=== PATIENT | female | born 1985 | race Caucasian/White ===

== ENCOUNTER 2018-02-21 05:50 | Emergency (ER) | payer MEDICAID ==
[2018-02-21] MEDS ORDERED: Sodium Chloride 0.9% 1,000 ML IV ONE (06:18)
--- NOTE | 2018-02-21 06:18 | C.PDOC ---
History Of Present Illness pt presents with sudden onset of periumbilical pain. Some nausea, no vomiting. Sharp stabbing, non radiating pain. Time Seen by Provider: 02/21/18 06:18 Chief Complaint (Nursing): Abdominal Pain History Per: Patient History/Exam Limitations: no limitations Onset/Duration Of Symptoms: Hrs Current Symptoms Are (Timing): Still Present Context: Other Severity: Moderate Pain Scale Rating Of: 5 Location Of Pain/Discomfort: Epigastric Radiation Of Pain To:: None Quality Of Discomfort: Sharp, Cramping Associated Symptoms: denies: Fever, Chills, Nausea Exacerbating Factors: None Alleviating Factors: None Last Bowel Movement: Today Recent travel outside of the [place]: No Additional History Per: Patient Past Medical History Reviewed: Historical Data, Nursing Documentation, Vital Signs Vital Signs: Last Vital Signs Temp 98.5 F 02/21/18 05:54 Pulse 81 02/21/18 05:54 Resp 22 02/21/18 05:54 BP 134/85 02/21/18 05:54 Pulse Ox 100 02/21/18 06:18 Family History: States: No Known Family Hx - Social History Hx Alcohol Use: No Hx Substance Use: No - Immunization History Hx Tetanus Toxoid Vaccination: No Hx Influenza Vaccination: Yes Hx Pneumococcal Vaccination: No Review Of Systems Constitutional: Negative for: Fever, Chills Cardiovascular: Negative for: Chest Pain Respiratory: Negative for: Shortness of Breath Gastrointestinal: Positive for: Nausea, Abdominal Pain Genitourinary: Negative for: Dysuria Musculoskeletal: Negative for: Back Pain Skin: Negative for: Rash Neurological: Negative for: Weakness Psych: Negative for: Anxiety Physical Exam - Physical Exam Appears: Non-toxic, In Acute Distress Skin: Warm, Dry Oral Mucosa: Moist Lips: Normal Appearing Neck: Supple Chest: Symmetrical Cardiovascular: Rhythm Regular Respiratory: No Rales, No Rhonchi, No Wheezing Gastrointestinal/Abdominal: Soft, Tenderness, No Distention, No Guarding, No Rebound Back: Normal Inspection Extremity: Normal ROM Extremity: Bilateral: Atraumatic Neurological/Psych: Oriented x3 Gait: Steady ED Course And Treatment O2 Sat by Pulse Oximetry: 100 Pulse Ox Interpretation: Normal Disposition Counseled Patient/Family Regarding: Studies Performed, Diagnosis - Disposition Disposition Time: 06:18 Condition: FAIR Forms: [employer] (Omani) - Clinical Impression Clinical Impression: Abdominal pain Physician Patient Turnover Patient Signed Over To: Gabi Santana Handoff Comments: pending labs and dispostion
[2018-02-21] MEDS ORDERED: Sodium Chloride 0.9% 1,000 ML ONE (06:21)
[2018-02-21 06:31] LABS: BASO # 0.1 K/uL (0.0-0.2); BASO % 1.1 % (0.0-2.0); EOS # 0.1 K/uL (0.0-0.7); EOS % 1.9 % (0.0-4.0); HEMOGLOBIN 13.8 g/dL (11.0-16.0); LYMPH # 2.3 K/uL (1.0-4.3); MEAN CORPUSCULAR HEMOGLOBIN 29.8 pg (27.0-31.0); MEAN CORPUSCULAR HGB CONC 34.2 g/dL (33.0-37.0); MEAN PLATELET VOLUME 8.1 fL (7.2-11.7); MONO # 0.5 K/uL (0.0-0.8); MONO % 9.4 % (0.0-10.0); NEUT % 40.6 % (50.0-75.0); NRBC % 0.1 % (0.0-2.0); RBC 4.62 Mil/uL (3.80-5.20); RED CELL DISTRIBUTION WIDTH 13.7 % (11.5-14.5); WHITE BLOOD COUNT 4.9 K/uL (4.8-10.8)
[2018-02-21 06:42] LABS: CALCIUM 9.5 mg/dl (8.6-10.4); GFR AFRICAN-AMERICAN > 60; GFR NON-AFRICAN AMERICAN > 60; LIPASE 147 U/L (23-300)
[2018-02-21 06:45] LABS: ALB/GLOB RATIO 1.3 (1.0-2.1); ALT/SGPT 19 U/L (9-52); AST/SGOT 31 U/L (14-36); BLOOD UREA NITROGEN 20 mg/dL (7-17)
[2018-02-21 06:49] LABS: HCG,QUALITATIVE URINE NEGATIVE (NEGATIVE)
[2018-02-21 07:19] LABS: SQUAMOUS EPITHIAL 14 /hpf (0-5); URINE AMORPHOUS SEDIMENT FEW /ul (<OCC); URINE BACTERIA RARE (<OCC); URINE BILIRUBIN NEGATIVE (NEGATIVE); URINE BLOOD NEGATIVE (NEGATIVE); URINE CLARITY Hazy (Clear); URINE COLOR Yellow (YELLOW); URINE GLUCOSE (UA) NORMAL (Normal); URINE LEUKOCYTE ESTERASE 2+ Leu/uL (Negative); URINE PROTEIN NEGATIVE (NEGATIVE); URINE UROBILINOGEN NORMAL mg/dL (0.2-1.0)
[2018-02-21] MEDS ORDERED: Iodixanol 320 MG/ML 100 ML BOTTLE IV ONE (08:13)
--- NOTE | 2018-02-21 09:08 | CT ---
PROCEDURE: CT Abdomen and Pelvis with contrast HISTORY: PERIUMBILICAL PAIN R/O APPENDICITIS COMPARISON: None. TECHNIQUE: Contrast dose: 100 mL Visipaque 320 Radiation dose: Total exam DLP = 510.9 mGy-cm. This CT exam was performed using one or more of the following dose reduction techniques: Automated exposure control, adjustment of the mA and/or kV according to patient size, and/or use of iterative reconstruction technique. FINDINGS: LOWER THORAX: Unremarkable. LIVER: Unremarkable. No gross lesion or ductal dilatation. GALLBLADDER AND BILE DUCTS: Distended gallbladder with radiopaque gallstones, gallbladder wall thickening and edema. PANCREAS: Unremarkable. No gross lesion or ductal dilatation. SPLEEN: Unremarkable. ADRENALS: Unremarkable. No mass. KIDNEYS AND URETERS: Unremarkable. No hydronephrosis. No solid mass. VASCULATURE: Unremarkable. No aortic aneurysm. BOWEL: Unremarkable. No obstruction. No gross mural thickening. APPENDIX: Normal appendix. PERITONEUM: Unremarkable. No free fluid. No free air. LYMPH NODES: Unremarkable. No enlarged lymph nodes. BLADDER: Unremarkable. REPRODUCTIVE: Intrauterine device in place. BONES: No acute fracture. OTHER FINDINGS: None. IMPRESSION: CT findings suspicious for acute cholecystitis. Correlate clinically and with right upper quadrant ultrasound, as needed. Findings conveyed to Dr. Santana by Dr. Gibbons at 9:03 a.m. on 02/21/2018.
[2018-02-21] MEDS ORDERED: Sodium Chloride 0.9% 500 ML IV ONE (09:35)
--- NOTE | 2018-02-21 11:22 | US ---
HISTORY: epigastric pain, possible cholcystitis on CT COMPARISON: CT scan of the abdomen pelvis performed earlier the same day. TECHNIQUE: Sonographic evaluation of the right upper quadrant of the abdomen. FINDINGS: LIVER: Measures 18.5 cm in length. Increased echogenicity of the liver parenchyma. No mass. No intrahepatic bile duct dilatation. GALLBLADDER: Cholelithiasis with gallbladder wall thickening/ edema. Sonographic Kat's sign was not elicited ; however, patient receiving pain medication in the emergency department. COMMON BILE DUCT: Measures 3 mm. No stones. No dilatation. PANCREAS: Unremarkable as visualized. No mass. No ductal dilatation. RIGHT KIDNEY: Measures 12.2 x 3.8 x 4.6 cm in length. Normal echogenicity. No calculus, mass, or hydronephrosis. AORTA: No aneurysmal dilatation. IVC: Unremarkable. OTHER FINDINGS: None . IMPRESSION: Cholelithiasis with gallbladder wall thickening/edema and pericholecystic fluid. Patient received pain medication in the emergency department limiting sensitivity for sonographic Kat sign, which was not elicited. Findings are highly suspicious for acute cholecystitis in the appropriate clinical setting. Hepatic steatosis.
--- NOTE | 2018-02-21 12:04 | CP.PCM.CON ---
History of Present Illness - History of Present Illness History of Present Illness: General Surgery Consult note for Dr. Alvarez This 32F with no PMH presents with Epigastric pain of sudden onset that began at 4am. She reports nausea no vomiting. She denies any fevers chills diarrhea ro bloody bm at that time. She also denies any bloating or gas pains. She reports this is the first time she felt anything like this before. At the time of my patient interaction her pain has resolved. After reviewing the patients labs and imaging findings with her I discussed surgical options. She reports that it is not a good time for her to have surgery since she has two children at home. She would like to followup outpatient so that she can havea same day surgery and retun home later that evening, OMH: None PSH: Breast abscess Social: Denies smoking, etoh and drugs Review of Systems - Review of Systems All systems: reviewed and no additional remarkable complaints except - Gastrointestinal Gastrointestinal: Abdominal Pain (resolved), Nausea. absent: Diarrhea, Hematochezia, Vomiting Past Patient History - Infectious Disease Hx of Infectious Diseases: None - Past Social History Smoking Status: Never Smoked - PSYCHIATRIC Hx Substance Use: No - SURGICAL HISTORY Hx Surgeries: No - ANESTHESIA Hx Anesthesia: No Meds Home Medications: Home Medication List Medication Instructions Recorded Confirmed Type Ciprofloxacin [Cipro] 1 tab PO BID #14 tab 02/21/18 Rx Naproxen 375 mg PO BID PRN #20 tablet 02/21/18 Rx metroNIDAZOLE [Flagyl] 500 mg PO TID #21 tab 02/21/18 Rx Allergies/Adverse Reactions: Allergies Allergy/AdvReac Type Severity Reaction Status Date / Time No Known Allergies Allergy Unverified 02/21/18 05:55 Physical Exam - Constitutional Appears: Non-toxic, No Acute Distress - Head Exam Head Exam: ATRAUMATIC, NORMOCEPHALIC - Eye Exam Eye Exam: EOMI - ENT Exam ENT Exam: Mucous Membranes Moist - Respiratory Exam Respiratory Exam: NORMAL BREATHING PATTERN - Cardiovascular Exam Cardiovascular Exam: +S1, +S2 - GI/Abdominal Exam GI & Abdominal Exam: Soft. absent: Diminished Bowel Sounds, Distended, Firm, Guarding, Hernia, Tenderness - Neurological Exam Neurological exam: Alert, Oriented x3 - Psychiatric Exam Psychiatric exam: Normal Affect, Normal Mood - Skin Skin Exam: Dry, Intact Results - Vital Signs Recent Vital Signs: Last Vital Signs Temp 98.5 F 02/21/18 05:54 Pulse 85 02/21/18 09:30 Resp 18 02/21/18 09:30 BP 96/63 L 02/21/18 09:30 Pulse Ox 99 02/21/18 09:30 - Labs Result Diagrams: 02/21/18 06:24 02/21/18 06:24 Labs: Laboratory Results - last 24 hr 02/21/18 02/21/18 02/21/18 06:24 06:24 06:42 WBC 4.9 RBC 4.62 Hgb 13.8 Hct 40.2 MCV 87.0 MCH 29.8 MCHC 34.2 RDW 13.7 Plt Count 247 MPV 8.1 Neut % (Auto) 40.6 L Lymph % (Auto) 47.0 H [place] % (Auto) 9.4 Eos % (Auto) 1.9 Baso % (Auto) 1.1 Neut # (Auto) 2.0 Lymph # (Auto) 2.3 [place] # (Auto) 0.5 Eos # (Auto) 0.1 Baso # (Auto) 0.1 Sodium 140 Potassium 4.2 Chloride 101 Carbon Dioxide 24 Anion Gap 18 BUN 20 H Creatinine 0.6 L Est GFR ( Amer) > 60 Est GFR (Non-Af Amer) > 60 Random Glucose 97 Calcium 9.5 Total Bilirubin 1.3 AST 31 ALT 19 Alkaline Phosphatase 87 Total Protein 8.7 H Albumin 5.0 Globulin 3.7 Albumin/Globulin Ratio 1.3 Lipase 147 Urine Color Yellow Urine Clarity Hazy Urine pH 7.0 Ur Specific [place] 1.020 Urine Protein Negative Urine Glucose (UA) Normal Urine Ketones 1+ H Urine Blood Negative Urine Nitrate Negative Urine Bilirubin Negative Urine Urobilinogen Normal Ur Leukocyte Esterase 2+ H Urine WBC (Auto) 27 H Urine RBC (Auto) 1 Ur Squamous Epith Cells 14 H Amorphous Sediment Few H Urine Bacteria Rare Urine HCG, Qual Negative - Imaging and Cardiology US - abdomen Status: Image reviewed by me, Report reviewed by me CT scan - abdomen Status: Image reviewed by me, Report reviewed by me Assessment & Plan - Assessment and Plan (Free Text) Assessment: 32F with acute cholecystitis without evidence of choledocholithiasis Pt refusing surgery at this time Recommend antibiotic treatment with eventual cholecystectomy Will discuss patient presentation and plan with Dr. Alvarez Further recs per Dr. Kim Claros PGY3
[2018-02-21 12:15] VITALS: BP 110/73; PULSE 74; RESP 20; TEMP 97.9; O2SAT 100
== END 2018-02-21 12:14 | disposition home or self-care (01) ==
LOC: SUPCPDRO 05:50 → C.ER 05:50
DX: K80.20 Calculus of gallbladder without cholecystitis without obstruction (principal)
CPT/HCPCS: 74177; 76705; 80053; 81001; 83690; 84703; 85025; 96361; 96374; 96375; 99285; J1885; J2270; J2405; J7030; J7040; Q9967

== ENCOUNTER 2018-02-22 18:53 | Inpatient (IN) | payer MEDICAID ==
[2018-02-22] MEDS ORDERED: Piperacillin/Tazobact 3.375 gm 100 ML IVPB STA (19:54)
--- NOTE | 2018-02-22 19:54 | C.PDOC ---
History Of Present Illness 32 y/o female presents to ED for complaints of abdominal pain. Patient was seen in ER earlier today and had a CT and US done which showed possible acute cholecystitis. Patient states she refused admission earlier because the pain resolved. Patient currently returns for similar pain symptoms and discomfort. Time Seen by Provider: 02/22/18 19:53 Chief Complaint (Nursing): Abdominal Pain History Per: Patient History/Exam Limitations: no limitations Onset/Duration Of Symptoms: Hrs Current Symptoms Are (Timing): Still Present Severity: Moderate Pain Scale Rating Of: 5 Location Of Pain/Discomfort: Diffuse, RUQ Radiation Of Pain To:: None Associated Symptoms: denies: Fever, Chills, Nausea, Vomiting, Diarrhea Exacerbating Factors: None Alleviating Factors: None Last Bowel Movement: Today Recent travel outside of the [place]: No Additional History Per: Patient Abnormal Vaginal Bleeding: No Past Medical History Reviewed: Historical Data, Nursing Documentation, Vital Signs Vital Signs: Last Vital Signs Temp 98 F 02/22/18 19:01 Pulse 73 02/22/18 19:01 Resp 16 02/22/18 19:01 BP 108/72 02/22/18 19:01 Pulse Ox 99 02/22/18 20:13 - Medical History PMH: No Chronic Diseases Surgical History: No Surg Hx Family History: States: No Known Family Hx - Social History Hx Alcohol Use: No Hx Substance Use: No - Immunization History Hx Tetanus Toxoid Vaccination: No Hx Influenza Vaccination: Yes Hx Pneumococcal Vaccination: No Review Of Systems Constitutional: Negative for: Fever, Chills Gastrointestinal: Positive for: Abdominal Pain. Negative for: Nausea, Vomiting , Diarrhea Skin: Negative for: Rash Neurological: Negative for: Weakness, Numbness Psych: Negative for: Anxiety Physical Exam - Physical Exam Appears: Non-toxic Skin: Warm, Dry Head: Normacephalic Eye(s): bilateral: Normal Inspection Oral Mucosa: Moist Neck: Supple Chest: Symmetrical Cardiovascular: Rhythm Regular Respiratory: No Rales, No Rhonchi, No Wheezing Gastrointestinal/Abdominal: Soft, Tenderness (RUQ), No Distention, No Guarding, No Rebound Back: Normal Inspection Extremity: Normal ROM Extremity: Bilateral: Atraumatic, Normal Color And Temperature, Normal ROM Neurological/Psych: Oriented x3, Normal Speech Gait: Steady ED Course And Treatment O2 Sat by Pulse Oximetry: 99 (RA) Pulse Ox Interpretation: Normal Progress Note: Adminsitered Zofran, Toradol, Zosyn, and IV fluids. Ordered blood work. Disposition Discussed With Dr.: Ayala Casas Comment: accepted the pt on her service and took over the care at 8:14 PM Doctor Will See Patient In The: Hospital Counseled Patient/Family Regarding: Studies Performed, Diagnosis - Disposition Disposition: HOSPITALIZED Disposition Time: 19:54 Condition: FAIR Forms: [facility] (Macedonian) - POA Present On Arrival: None - Clinical Impression Clinical Impression: Abdominal pain, Acute cholecystitis - Scribe Statement The provider has reviewed the documentation as recorded by the Scribe Nadia Wright All medical record entries made by the Scribe were at my direction and personally dictated by me. I have reviewed the chart and agree that the record accurately reflects my personal performance of the history, physical exam, medical decision making, and the department course for this patient. I have also personally directed, reviewed, and agree with the discharge instructions and disposition. Decision To Admit - Pt Status Changed To: Hospital Disposition Of: Inpatient - Admit Certification Admit to Inpatient:: After my assessment, the patient will require hospitalization for at least two midnights. This is because of the severity of symptoms shown, intensity of services needed, and/or the medical risk in this patient being treated as an outpatient. - InPatient: Physician Admission Certification:: After my assessment, the patient will require hospitalization for at least two midnights. This is because of the severity of symptoms shown, intensity of services needed, and/or the medical risk in this patient being treated as an outpatient. - . Bed Request Type: Regular Admitting Physician: Ayala Casas Patient Diagnosis: Abdominal pain, Acute cholecystitis
[2018-02-22] MEDS ORDERED: Sodium Chloride 0.9% 1,000 ML IV ONE (19:55)
[2018-02-22 20:16] LABS: BASO % 0.8 % (0.0-2.0); EOS # 0.1 K/uL (0.0-0.7); EOS % 1.6 % (0.0-4.0); HEMOGLOBIN 12.6 g/dL (11.0-16.0); LYMPH # 1.5 K/uL (1.0-4.3); LYMPH % 29.7 % (20.0-40.0); MEAN CORPUSCULAR HEMOGLOBIN 29.4 pg (27.0-31.0); MEAN CORPUSCULAR HGB CONC 33.8 g/dL (33.0-37.0); MONO # 0.4 K/uL (0.0-0.8); MONO % 7.6 % (0.0-10.0); NEUT % 60.3 % (50.0-75.0); RBC 4.3 Mil/uL (3.80-5.20)
[2018-02-22 20:26] LABS: PROTHROMBIN TIME 10.9 SECONDS (9.7-12.2)
[2018-02-22] MEDS ORDERED: Piperacillin/Tazobact 3.375 gm 100 ML IVPB ONE (20:32)
[2018-02-22 20:38] LABS: ALB/GLOB RATIO 1.3 (1.0-2.1); ALBUMIN 4.5 g/dL (3.5-5.0); ALT/SGPT 189 U/L (9-52); AST/SGOT 87 U/L (14-36); BLOOD UREA NITROGEN 12 mg/dL (7-17); CALCIUM 9.4 mg/dl (8.6-10.4); GFR AFRICAN-AMERICAN > 60; GFR NON-AFRICAN AMERICAN > 60; LIPASE 86 U/L (23-300)
--- NOTE | 2018-02-22 21:16 | CP.PCM.CON ---
History of Present Illness - History of Present Illness History of Present Illness: Surgery: Dr. Ruiz CC: Abd Pain HPI: 32F w. no significant PMH originally presented to ED yesterday with acute onset abdominal pain. Work up was consistent with acute cholecystitis. Pt's pain resolved in ED and she opted for discharge to manage gallbladder electively. She returns to ED today for return of symptoms. She has acute RUQ abdominal pain. The pain is constant w. no alleviating or aggravating factors. She denies F/C. No N/V/D. PMH: None PSH: Breast abscess I&D Meds: MAR reviewed NKDA Social Hx: No ETHO/tobacco/drugs Fhx: Non-contributory Review of Systems - Review of Systems All systems: reviewed and no additional remarkable complaints except Past Patient History - Infectious Disease Hx of Infectious Diseases: None - Past Social History Smoking Status: Never Smoked - PSYCHIATRIC Hx Substance Use: No - SURGICAL HISTORY Hx Surgeries: No - ANESTHESIA Hx Anesthesia: No Meds Allergies/Adverse Reactions: Allergies Allergy/AdvReac Type Severity Reaction Status Date / Time No Known Allergies Allergy Verified 02/22/18 19:03 Physical Exam - Constitutional Appears: Non-toxic, No Acute Distress - Head Exam Head Exam: ATRAUMATIC, NORMOCEPHALIC - Eye Exam Eye Exam: EOMI - ENT Exam ENT Exam: Mucous Membranes Moist - Neck Exam Neck exam: Positive for: Full Rom, Normal Inspection - Respiratory Exam Respiratory Exam: NORMAL BREATHING PATTERN. absent: Accessory Muscle Use, Respiratory Distress - Cardiovascular Exam Cardiovascular Exam: REGULAR RHYTHM - GI/Abdominal Exam GI & Abdominal Exam: Soft, Tenderness (RUQ). absent: Distended, Firm, Guarding , Rebound, Rigid - Extremities Exam Extremities exam: Negative for: calf tenderness, pedal edema - Neurological Exam Neurological exam: Alert, Oriented x3 - Skin Skin Exam: Dry, Warm Results - Vital Signs Recent Vital Signs: Last Vital Signs Temp 98 F 02/22/18 19:01 Pulse 73 02/22/18 19:01 Resp 16 02/22/18 19:01 BP 108/72 02/22/18 19:01 Pulse Ox 99 02/22/18 20:16 - Labs Result Diagrams: 02/22/18 20:13 02/22/18 20:13 Labs: Laboratory Results - last 24 hr 02/22/18 02/22/18 02/22/18 20:13 20:13 20:13 WBC 5.0 RBC 4.30 Hgb 12.6 Hct 37.4 MCV 87.0 MCH 29.4 MCHC 33.8 RDW 14.0 Plt Count 221 MPV 8.0 Neut % (Auto) 60.3 Lymph % (Auto) 29.7 [place] % (Auto) 7.6 Eos % (Auto) 1.6 Baso % (Auto) 0.8 Neut # (Auto) 3.0 Lymph # (Auto) 1.5 [place] # (Auto) 0.4 Eos # (Auto) 0.1 Baso # (Auto) 0.0 PT 10.9 INR 1.0 APTT 31 Sodium 140 Potassium 4.1 Chloride 103 Carbon Dioxide 27 Anion Gap 15 BUN 12 Creatinine 0.7 Est GFR ( Amer) > 60 Est GFR (Non-Af Amer) > 60 Random Glucose 95 Calcium 9.4 Total Bilirubin 0.4 AST 87 H D ALT 189 H D Alkaline Phosphatase 102 Total Protein 7.9 Albumin 4.5 Globulin 3.5 Albumin/Globulin Ratio 1.3 Lipase 86 - Imaging and Cardiology CT scan - abdomen Status: Image reviewed by me, Report reviewed by me US - abdomen Status: Image reviewed by me, Report reviewed by me Assessment & Plan - Assessment and Plan (Free Text) Assessment: 32F w. cholecystitis -OR tomorrow for lap nelson -NPO -IVF -Pain meds -abx -d/w attending Zemaitis PGY4
[2018-02-22] MEDS: Sodium Chloride 0.9% 1,000 ML IV SCH (22:36)
[2018-02-23] MEDS: Piperacill/Tazo 3.375gm in Dex 3.375 GM/50 ML BAG IVPB SCH ×4 (03:32→21:58)
[2018-02-23 08:37] LABS: HEMOGLOBIN 11.7 g/dL (11.0-16.0); MEAN CELL VOLUME 87.2 fL (81.0-99.0); MEAN CORPUSCULAR HEMOGLOBIN 30.1 pg (27.0-31.0); MEAN CORPUSCULAR HGB CONC 34.5 g/dL (33.0-37.0); MEAN PLATELET VOLUME 8.3 fL (7.2-11.7); RBC 3.89 Mil/uL (3.80-5.20); RED CELL DISTRIBUTION WIDTH 13.9 % (11.5-14.5)
[2018-02-23 08:55] LABS: ALB/GLOB RATIO 1.2 (1.0-2.1); ALBUMIN 3.5 g/dL (3.5-5.0); ALT/SGPT 136 U/L (9-52); AST/SGOT 52 U/L (14-36); BLOOD UREA NITROGEN 11 mg/dL (7-17); CALCIUM 8.6 mg/dl (8.6-10.4); GFR AFRICAN-AMERICAN > 60; GFR NON-AFRICAN AMERICAN > 60
[2018-02-23] MEDS: Sodium Chloride 0.9% 1,000 ML IV SCH ×3 (10:22→21:59)
--- NOTE | 2018-02-23 10:57 | CP.PCM.HP ---
History of Present Illness - History of Present Illness History of Present Illness: pt has pain ruq abd recurent got worse last 2 days came to er 2 times has hx of gall stones admited for surgery c/o of constipation 4days no bowel movements Present on Admission - Present on Admission Any Indicators Present on Admission: No Review of Systems - Review of Systems Systems not reviewed;Unavailable: Acuity of Condition - Constitutional Constitutional: Anorexia, Fatigue - EENT Eyes: As Per HPI Ears: As Per HPI Nose/Mouth/Throat: As Per HPI - Breasts Breasts: As Per HPI - Cardiovascular Cardiovascular: As Per HPI - Respiratory Respiratory: As Per HPI - Gastrointestinal Gastrointestinal: Abdominal Pain, Change in Bowel Habits, Constipation, Nausea - Genitourinary Genitourinary: As Per HPI - Reproductive: Female Reproductive:Female: As Per HPI - Menstruation Menstruation: As Per HPI - Musculoskeletal Musculoskeletal: As Per HPI - Integumentary Integumentary: As Per HPI - Neurological Neurological: As Per HPI - Psychiatric Psychiatric: As Per HPI - Endocrine Endocrine: As Per HPI - Hematologic/Lymphatic Hematologic: As Per HPI Past Patient History - Infectious Disease Hx of Infectious Diseases: None - Past Medical History & Family History Past Medical History?: No - Past Social History Smoking Status: Never Smoked - MUSCULOSKELETAL/RHEUMATOLOGICAL Hx Falls: No - PSYCHIATRIC Hx Substance Use: No - SURGICAL HISTORY Hx Surgeries: No - ANESTHESIA Hx Anesthesia: No Meds Allergies/Adverse Reactions: Allergies Allergy/AdvReac Type Severity Reaction Status Date / Time No Known Allergies Allergy Verified 02/22/18 19:03 Physical Exam - Constitutional Appears: Non-toxic, In Acute Distress - Head Exam Head Exam: ATRAUMATIC - Eye Exam Eye Exam: Normal appearance Pupil Exam: NORMAL ACCOMODATION - ENT Exam ENT Exam: Normal Exam - Neck Exam Neck exam: Positive for: Full Rom - Respiratory Exam Respiratory Exam: Clear to Auscultation Bilateral - Cardiovascular Exam Cardiovascular Exam: REGULAR RHYTHM - GI/Abdominal Exam GI & Abdominal Exam: Normal Bowel Sounds, Tenderness - Rectal Exam Rectal Exam: NORMAL INSPECTION - Extremities Exam Extremities exam: Positive for: normal inspection - Back Exam Back exam: NORMAL INSPECTION - Neurological Exam Neurological exam: Alert, Normal Gait, Oriented x3 - Psychiatric Exam Psychiatric exam: Normal Affect - Skin Skin Exam: Normal Color Results - Vital Signs Recent Vital Signs: Last Vital Signs Temp 97.9 F 07/06/18 08:30 Pulse 65 02/23/18 08:30 Resp 20 02/23/18 08:30 BP 114/68 02/23/18 08:30 Pulse Ox 98 02/23/18 08:30 - Labs Result Diagrams: 02/23/18 08:17 02/23/18 08:17 Labs: Laboratory Results - last 24 hr 02/22/18 02/22/18 02/22/18 20:13 20:13 20:13 WBC 5.0 RBC 4.30 Hgb 12.6 Hct 37.4 MCV 87.0 MCH 29.4 MCHC 33.8 RDW 14.0 Plt Count 221 MPV 8.0 Neut % (Auto) 60.3 Lymph % (Auto) 29.7 [place] % (Auto) 7.6 Eos % (Auto) 1.6 Baso % (Auto) 0.8 Neut # (Auto) 3.0 Lymph # (Auto) 1.5 [place] # (Auto) 0.4 Eos # (Auto) 0.1 Baso # (Auto) 0.0 PT 10.9 INR 1.0 APTT 31 Sodium 140 Potassium 4.1 Chloride 103 Carbon Dioxide 27 Anion Gap 15 BUN 12 Creatinine 0.7 Est GFR ( Amer) > 60 Est GFR (Non-Af Amer) > 60 Random Glucose 95 Calcium 9.4 Total Bilirubin 0.4 AST 87 H D ALT 189 H D Alkaline Phosphatase 102 Total Protein 7.9 Albumin 4.5 Globulin 3.5 Albumin/Globulin Ratio 1.3 Lipase 86 Urine HCG, Qual Blood Type Antibody Screen 02/23/18 02/23/18 02/23/18 08:17 08:17 08:17 WBC 3.0 L RBC 3.89 Hgb 11.7 Hct 33.9 L MCV 87.2 MCH 30.1 MCHC 34.5 RDW 13.9 Plt Count 187 MPV 8.3 Neut % (Auto) Lymph % (Auto) [place] % (Auto) Eos % (Auto) Baso % (Auto) Neut # (Auto) Lymph # (Auto) [place] # (Auto) Eos # (Auto) Baso # (Auto) PT INR APTT Sodium 139 Potassium 4.0 Chloride 108 H Carbon Dioxide 24 Anion Gap 12 BUN 11 Creatinine 0.6 L Est GFR ( Amer) > 60 Est GFR (Non-Af Amer) > 60 Random Glucose 94 Calcium 8.6 Total Bilirubin 0.7 AST 52 H D ALT 136 H D Alkaline Phosphatase 74 Total Protein 6.6 Albumin 3.5 D Globulin 3.0 Albumin/Globulin Ratio 1.2 Lipase Urine HCG, Qual Blood Type B POSITIVE Antibody Screen Negative 02/23/18 08:45 WBC RBC Hgb Hct MCV MCH MCHC RDW Plt Count MPV Neut % (Auto) Lymph % (Auto) [place] % (Auto) Eos % (Auto) Baso % (Auto) Neut # (Auto) Lymph # (Auto) [place] # (Auto) Eos # (Auto) Baso # (Auto) PT INR APTT Sodium Potassium Chloride Carbon Dioxide Anion Gap BUN Creatinine Est GFR ( Amer) Est GFR (Non-Af Amer) Random Glucose Calcium Total Bilirubin AST ALT Alkaline Phosphatase Total Protein Albumin Globulin Albumin/Globulin Ratio Lipase Urine HCG, Qual Negative Blood Type Antibody Screen Assessment & Plan - Assessment and Plan (Free Text) Assessment: symtomatic gall stones abd pain Plan: surgery - Date & Time Date: 02/23/18 Time: 11:00
[2018-02-23 11:46] LABS: INR 1.1; PROTHROMBIN TIME 12.1 SECONDS (9.7-12.2)
[2018-02-23] MEDS: HYDROmorphone 0.5 mg/0.5 ml ISec IVP PRN (13:20)
[2018-02-23] MEDS ORDERED: Midazolam 2 MG/2 ML VIAL ONE (17:55)
[2018-02-23] MEDS ORDERED: Propofol 10 mg/ml Inj (20 ML) ONE (17:55)
[2018-02-23] MEDS ORDERED: Succinylcholine Chloride 20 mg/ml Syr (5 ml) IV ONE (17:59)
[2018-02-23] MEDS: Iohexol 240 (50 ml) ONE ×2 (18:48→18:57)
[2018-02-23] MEDS ORDERED: Neostigmine Methylsulfate 3mg/3ml Syringe IV ONE (19:53)
[2018-02-23] MEDS ORDERED: HYDROmorphone 0.5 mg/0.5 ml ISec IVP PRN (20:16)
--- NOTE | 2018-02-23 20:23 | PCM.SURG1 ---
Surgeon's Initial Post Op Note - Surgeon's Notes Surgeon: On Call Pharmacy Technician: Dr. Wilkerson PGY3 Type of Anesthesia: General Endo Pre-Operative Diagnosis: acute cholecystitis Operative Findings: see operative report Post-Operative Diagnosis: same Operation Performed: laparoscopic cholecystectomy with intra operative cholangiogram Specimen/Specimens Removed: gallbladder Estimated Blood Loss: EBL {In ML}: 30 Blood Products Given: N/A Drains Used: No Drains Post-Op Condition: Good Date of Surgery/Procedure: 02/23/18 Time of Surgery/Procedure: 18:30
[2018-02-23 23:48] VITALS: RESP 20
[2018-02-24] MEDS: Piperacill/Tazo 3.375gm in Dex 3.375 GM/50 ML BAG IVPB SCH ×3 (02:15→14:19)
[2018-02-24] MEDS: Sodium Chloride 0.9% 1,000 ML IV SCH ×4 (03:50→14:18)
[2018-02-24 06:48] LABS: BASO % 0.1 % (0.0-2.0); EOS % 0.1 % (0.0-4.0); HEMOGLOBIN 11.7 g/dL (11.0-16.0); LYMPH # 0.7 K/uL (1.0-4.3); LYMPH % 9.8 % (20.0-40.0); MEAN CELL VOLUME 87.2 fL (81.0-99.0); MEAN CORPUSCULAR HEMOGLOBIN 29.8 pg (27.0-31.0); MEAN CORPUSCULAR HGB CONC 34.2 g/dL (33.0-37.0); MEAN PLATELET VOLUME 8.2 fL (7.2-11.7); MONO # 0.4 K/uL (0.0-0.8); NEUT # 6.2 K/uL (1.8-7.0); PLATELET COUNT 198 K/uL (130-400); RBC 3.93 Mil/uL (3.80-5.20); RED CELL DISTRIBUTION WIDTH 13.8 % (11.5-14.5); WHITE BLOOD COUNT 7.3 K/uL (4.8-10.8)
[2018-02-24 06:52] LABS: ALB/GLOB RATIO 1.3 (1.0-2.1); ALBUMIN 3.5 g/dL (3.5-5.0); ALT/SGPT 121 U/L (9-52); AST/SGOT 42 U/L (14-36); BLOOD UREA NITROGEN 8 mg/dL (7-17); CALCIUM 8.2 mg/dl (8.6-10.4); GFR AFRICAN-AMERICAN > 60; GFR NON-AFRICAN AMERICAN > 60
--- NOTE | 2018-02-24 07:24 | OP ---
PROCEDURE DATE: 02/23/2018 PREOPERATIVE DIAGNOSIS: Acute cholecystitis. POSTOPERATIVE DIAGNOSIS: Acute cholecystitis. PROCEDURE CARRIED OUT: Laparoscopic cholecystectomy with C-arm cholangiogram. SURGEON: Sanjay Ruiz Jr., MD GALLERY DIRECTOR: Zackery Wilkerson DO ANESTHESIOLOGIST: Mark Morales MD TYPE OF ANESTHESIA: General anesthesia. INDICATIONS: A 32-year-old woman with abdominal pain, came to the hospital, went home, came back again with acute cholecystitis. OPERATIVE FINDINGS: The cholangiogram carried out to the cystic duct showed free flow into the duodenum and good visualization of the hepatic radicles. No evidence of any residual stones or strictures. Review of safety was obtained and was satisfactory. The rest of the intraoperative findings were unremarkable. There were some adhesions from the anterior abdominal wall to the gallbladder. DESCRIPTION OF PROCEDURE: The patient was given general anesthesia and intravenous antibiotics. Venodyne boots were applied. Rogel trocar was inserted by cut-down technique. Two additional 5 mm trocars were placed. Cystic duct and cystic artery were identified. Review of safety obtained. Cholangiogram carried out as mentioned above. We removed the gallbladder after clipping the cystic duct and cystic artery. Removed the gallbladder from bed. There was a blood loss of approximately 50 mL or less during the procedure. After obtaining adequate hemostasis from the liver bed and irrigating out as much fluid as possible to be irrigated out. Removed the gallbladder from the umbilicus in a bag. There was some spillage of bile and very small stones as we were mobilizing the gallbladder. The gallbladder was also acutely distended on entering. Operation carried out, laparoscopic cholecystectomy with C-arm cholangiogram. Sanjay Ruiz Jr., MD cc: Ayala Casas MD
--- NOTE | 2018-02-24 09:08 | CP.PCM.PN ---
Subjective - Date & Time of Evaluation Date of Evaluation: 02/24/18 Time of Evaluation: 07:25 - Subjective Subjective: General Surgery Progress Note for Dr. Ruiz 32F seen and evaluated this AM. Pt resting comfortably in bed. No acute events overnight. Pain is well controlled. Pt is ambulating and tolerating diet. Denies BM or passing flatus. Denies n/v/d, f/c, SOB, CP, or urinary symptoms. Objective - Vital Signs/Intake and Output Vital Signs (last 24 hours): Temp Pulse Resp BP Pulse Ox 98.1 F 72 20 114/69 99 02/24/18 05:30 02/24/18 00:12 02/24/18 00:12 02/24/18 00:12 02/24/18 00:12 Intake and Output: 02/24/18 02/24/18 06:59 18:59 Intake Total 1365 Balance 1365 - Medications Medications: Current Medications Hydromorphone HCl (Dilaudid) 0.5 mg IVP Q4H PRN PRN Reason: Pain, moderate (4-7) Last Admin: 02/23/18 13:20 Dose: 0.5 mg Piperacillin Sod/Tazobactam Sod (Zosyn 3.375 Gm Iv Premix) 3.375 gm in 50 mls @ 100 mls/hr IVPB Q6H GISSELLE PRN Reason: Protocol Last Admin: 02/24/18 02:15 Dose: 100 mls/hr Sodium Chloride (Sodium Chloride 0.9%) 1,000 mls @ 100 mls/hr IV .Q10H GISSELLE Last Admin: 02/24/18 06:00 Dose: 100 mls/hr Sodium Chloride (Sodium Chloride 0.9%) 1,000 mls @ 75 mls/hr IV .[id number] GISSELLE Last Admin: 02/23/18 21:59 Dose: 75 mls/hr Ondansetron HCl (Zofran Inj) 4 mg IVP Q6 PRN PRN Reason: Nausea/Vomiting Last Admin: 02/24/18 00:30 Dose: 4 mg Pneumococcal Polyvalent Vaccine (Pneumovax 23 Vaccine) 0.5 ml SC .ONCE ONE Stop: 02/25/18 10:01 - Labs Labs: 02/24/18 06:27 02/24/18 06:27 PT 12.1 SECONDS (9.7-12.2) 02/23/18 11:29 INR 1.1 02/23/18 11:29 APTT 34 SECONDS (21-34) 02/23/18 11:29 - Constitutional Appears: Well, Non-toxic, No Acute Distress - Head Exam Head Exam: ATRAUMATIC, NORMAL INSPECTION, NORMOCEPHALIC - Eye Exam Eye Exam: EOMI, Normal appearance - Respiratory Exam Respiratory Exam: Clear to Ausculation Bilateral, NORMAL BREATHING PATTERN - Cardiovascular Exam Cardiovascular Exam: REGULAR RHYTHM, +S1, +S2. absent: Murmur - GI/Abdominal Exam GI & Abdominal Exam: Soft, Normal Bowel Sounds. absent: Distended, Firm, Guarding, Tenderness, Rebound - Neurological Exam Neurological Exam: Alert, Awake, Oriented x3 - Psychiatric Exam Psychiatric exam: Normal Affect, Normal Mood - Skin Skin Exam: Dry, Intact, Normal Color, Warm Additional comments: dressing over port site c/d/i Assessment and Plan - Assessment and Plan (Free Text) Assessment: 32F s/p alia damon POD1 Plan: c/w pain control encourage ambulation plan for discharge today Julian Giles PGY1
[2018-02-24] MEDS: HYDROmorphone 0.5 mg/0.5 ml ISec IVP PRN ×2 (09:49→14:09)
[2018-02-24 10:05] LABS: LYMPHOCYTE 10 % (20-40); MONOCYTE 5 % (0-10); NEUTROPHIL 85 % (50-75); TOTAL CELLS COUNTED 100
[2018-02-24 10:06] LABS: PLATELET ESTIMATE NORMAL (NORMAL)
--- NOTE | 2018-02-24 10:14 | CP.PCM.PN ---
Subjective - Date & Time of Evaluation Date of Evaluation: 02/24/18 Time of Evaluation: 10:12 - Subjective Subjective: feels beter tolerated breakfast encourage oob Objective - Vital Signs/Intake and Output Vital Signs (last 24 hours): Temp Pulse Resp BP Pulse Ox 98.1 F 72 20 114/69 99 02/24/18 05:30 02/24/18 00:12 02/24/18 00:12 02/24/18 00:12 02/24/18 00:12 Intake and Output: 02/24/18 02/24/18 06:59 18:59 Intake Total 1365 Balance 1365 - Medications Medications: Current Medications Hydromorphone HCl (Dilaudid) 0.5 mg IVP Q4H PRN PRN Reason: Pain, moderate (4-7) Last Admin: 02/24/18 09:49 Dose: 0.5 mg Piperacillin Sod/Tazobactam Sod (Zosyn 3.375 Gm Iv Premix) 3.375 gm in 50 mls @ 100 mls/hr IVPB Q6H GISSELLE PRN Reason: Protocol Last Admin: 02/24/18 09:40 Dose: 100 mls/hr Sodium Chloride (Sodium Chloride 0.9%) 1,000 mls @ 100 mls/hr IV .Q10H GISSELLE Last Admin: 02/24/18 06:00 Dose: 100 mls/hr Sodium Chloride (Sodium Chloride 0.9%) 1,000 mls @ 75 mls/hr IV .[id number] GISSELLE Last Admin: 02/23/18 21:59 Dose: 75 mls/hr Ondansetron HCl (Zofran Inj) 4 mg IVP Q6 PRN PRN Reason: Nausea/Vomiting Last Admin: 02/24/18 00:30 Dose: 4 mg Pneumococcal Polyvalent Vaccine (Pneumovax 23 Vaccine) 0.5 ml SC .ONCE ONE Stop: 02/25/18 10:01 - Labs Labs: 02/24/18 06:27 02/24/18 06:27 PT 12.1 SECONDS (9.7-12.2) 02/23/18 11:29 INR 1.1 02/23/18 11:29 APTT 34 SECONDS (21-34) 02/23/18 11:29 - Constitutional Appears: Non-toxic - Head Exam Head Exam: NORMAL INSPECTION - Eye Exam Eye Exam: Normal appearance Pupil Exam: NORMAL ACCOMODATION - ENT Exam ENT Exam: Mucous Membranes Moist - Neck Exam Neck Exam: Full ROM - Respiratory Exam Respiratory Exam: Clear to Ausculation Bilateral - Cardiovascular Exam Cardiovascular Exam: REGULAR RHYTHM - GI/Abdominal Exam GI & Abdominal Exam: Normal Bowel Sounds - Rectal Exam Rectal Exam: NORMAL INSPECTION - Exam Exam: NORMAL INSPECTION - Extremities Exam Extremities Exam: Normal Inspection - Back Exam Back Exam: NORMAL INSPECTION - Neurological Exam Neurological Exam: Alert, Awake, Normal Gait, Oriented x3 - Psychiatric Exam Psychiatric exam: Normal Affect - Skin Skin Exam: Normal Color Assessment and Plan - Assessment and Plan (Free Text) Assessment: s/p lab cholysystectomy improving will discharge Plan: disc
[2018-02-24 14:57] VITALS: O2SAT 97
[2018-02-24 17:51] VITALS: BP 108/64; PULSE 70; TEMP 98.8
[2018-02-24] MEDS ORDERED: Bisacodyl 5mg EC Tab PO ONE (20:30)
[2018-02-25] MEDS ORDERED: Pneumococcal 23-Valent Vaccine SC ONE (10:00)
--- NOTE | 2018-02-27 14:10 | RAD ---
PROCEDURE: HISTORY: As above COMPARISON: None TECHNIQUE: Total fluoroscopic time utilized during the procedure: 22.0 seconds ; 0.77 mGy c FINDINGS: Submitted images from the current procedure: 1 Please refer to the physician's notes performing the procedure. IMPRESSION: Less than 1 hour fluoroscopic time utilized during performance of the procedure
== END 2018-02-24 21:05 | disposition home or self-care (01) | DRG 494 ==
LOC: C.ER 18:53 → C.9E 20:12 → C.3T 21:35
PROVIDERS: ADMIT Internal Medicine; ATTEND Internal Medicine
PROC: BF121ZZ Fluoroscopy of Gallbladder using Low Osmolar Contrast (ICD-10-PCS; 2018-02-23)
PROC: 0FT44ZZ Resection of Gallbladder, Percutaneous Endoscopic Approach (ICD-10-PCS; principal; 2018-02-23 20:00)
DX: K80.00 Calculus of gallbladder with acute cholecystitis without obstruction (principal); K66.0 Peritoneal adhesions (postprocedural) (postinfection); K82.8 Other specified diseases of gallbladder